=== PATIENT | female | born 1955 | race Caucasian/White ===

== ENCOUNTER 2018-10-15 16:30 | Emergency (ER) | payer OTHER ==
--- NOTE | 2018-10-15 16:40 | PDOC ---
History of Present Illness - General Chief Complaint: Injury Stated Complaint: LEFT HAND INJURY Time Seen by Provider: 10/15/18 16:32 - History of Present Illness Initial Comments: 10/15/18 16:32 63 yo F with h/o asthma, immune deficiency, who p/w left hand pain s/p mechanical fall. Patient states that yesterday evening (10-14-17) she was standing on top of step stool (2 feet from ground), and lost her balance falling onto her left "buttock," and slapping the back of her left hand onto the wooden ground. Reports dull, left hand pain, and pain with pulling, gripping. Denies head/neck/back injury, laceration, LOC. Has placed ice on left hand with mild relief. Has not attempted oral analgesia. Recent URI type symptoms with congestion, and cough. Patient denies LARSON, neck stiffness, palpitations, wheezing, PND, orthopnea, leg pain/swelling, vision change, tinnitus, N/V, F,C, CP, SOB, urinary complaints, abdominal pain, diarrhea, constipation, hematuria, BPR, lightheadedness, weakness, sensory changes. PMHx: as noted above ROS: as noted SHx: Denies Etoh, IVDA Allergies: NKDA Past History - Past Medical History Allergies/Adverse Reactions: Allergies Allergy/AdvReac Type Severity Reaction Status Date / Time kiwi Allergy Severe shock Verified 03/31/14 09:14 No Known Drug Allergies Allergy Verified 03/31/14 09:14 Home Medications: Ambulatory Orders Levothyroxine [Synthroid -] 100 mcg PO DAILY 02/21/13 Albuterol Sulfate [Proair Hfa -] 1 - 2 inh PO AM PRN 03/31/14 Multivitamins [Multivit ([facility])] 1 tab PO DAILY 09/05/15 Budesonide/Formeterol Fumarate [SYMBICORT 160/4.5mcg -] 1 inh PO DAILY 10/15/18 Immune Globul G/Gly/Iga Avg 46 [Gamunex-C] 3 gm IJ MONTHLY 10/15/18 Valacyclovir HCl [Valtrex] 1,000 mg PO DAILY PRN 10/15/18 Asthma: Yes COPD: (PNEUMONIA) HTN: Yes Hypercholesterolemia: Yes Thyroid Disease: Yes (HYPOTHYROIDISM) - Suicide/Smoking/Psychosocial Hx Smoking Status: No Smoking History: Never smoked Have you smoked in the past 12 months: No Number of Cigarettes Smoked Daily: 0 Hx Alcohol Use: Yes ("SOCIAL") Drug/Substance Use Hx: No Substance Use Type: None Hx Substance Use Treatment: No Review of Systems - Review of Systems Comments:: 10/15/18 16:34 GENERAL/CONSTITUTIONAL: No fever or chills. No weakness. HEAD, EYES, EARS, NOSE AND THROAT: No change in vision. No ear pain or discharge. No sore throat. CARDIOVASCULAR: No chest pain or shortness of breath RESPIRATORY: No cough, wheezing, or hemoptysis. GASTROINTESTINAL: No nausea, vomiting, diarrhea or constipation. GENITOURINARY: No dysuria, frequency, or change in urination. MUSCULOSKELETAL: + Left hand pain. No joint or muscle swelling. No neck or back pain. SKIN: No rash NEUROLOGIC: No headache, vertigo, loss of consciousness, or change in strength/ sensation. ENDOCRINE: No increased thirst. No abnormal weight change HEMATOLOGIC/LYMPHATIC: No anemia, easy bleeding, or history of blood clots. ALLERGIC/IMMUNOLOGIC: No hives or skin allergy. *Physical Exam - Physical Exam Comments: 10/15/18 16:34 GENERAL: Awake, alert, and fully oriented, in no acute distress HEAD: No signs of trauma, normocephalic, atraumatic EYES: PERRLA, EOMI, sclera anicteric, conjunctiva clear ENT: Auricles normal inspection, hearing grossly normal, nares patent, oropharynx clear without exudates. Moist mucosa NECK: Normal ROM, supple, no lymphadenopathy, JVD, or masses LUNGS: No distress, speaks full sentences, clear to auscultation bilaterally HEART: Regular rate and rhythm, normal S1 and S2, no murmurs, rubs or gallops, peripheral pulses normal and equal bilaterally. ABDOMEN: Soft, nontender, normoactive bowel sounds. No guarding, no rebound. No masses EXTREMITIES : Normal inspection, Normal range of motion, no edema. No clubbing or cyanosis. LEFT HAND: + 4 x 2 cm area of ecchymosis and ttp on dorsal aspect of 4th-5th metacarpals. Intact distal radial pulses BL. No obvious bony deformity, or edema. Neg scaphoid/snuff box ttp. Normal ROM. Strength 5/5 throughout ext. BACK: + Paraspinal left sided sacral ttp. Absent midline ttp, bony deformity, step-off, skin change. NEUROLOGICAL: Cranial nerves II through XII grossly intact. Normal speech, normal gait, no focal sensorimotor deficits SKIN: Warm, Dry, normal turgor, no rashes or lesions noted Procedures - Splinting Splint Location: Left: Hand Pre-Proc Neuro Vasc Exam: normal Hand-Made Type: orthoglass Splint Type: Yes: Ulnar Post-Proc Neuro Vasc Exam: normal Geovani Bandage: yes Sling: Yes Complications: No Post splint xray: No Good repositioning: Yes Medical Decision Making - Medical Decision Making 10/15/18 16:34 63 yo F with h/o asthma, immune deficiency, who p/w left hand pain s/p mechanical fall.. VSS, AF, A&Ox3, GCS 15. + 4 x 2 cm area of ecchymosis and ttp on dorsal aspect of 4th-5th metacarpals. No evidence of open/closed head injury , basilar skull fracture. C-Spine neg. R/o fracture/dislocation. Potential FOOSH injury, perilunate/lunate, Monteggia, Galeazzi, Scaphoid, Colles fracture. R/o tendinous flexor/extensor injury. Provide analgesia and reassess. ED Course: Ibuprofen 600 mg Left hand RAD HAND RAD: Closed 4th metacrapal, proximal, oblique/non displaced fracture. Left Ulnar gutter splint placed Patient advised to f/u with ortho. Patient follows with Dr. Napoleon Lassiter 10/15/18 16:42 Patient advised to take Ibuprofen as needed for pain. Rest, ICE, Elevate Stable for d/c with return precautions. *DC/Admit/Observation/Transfer Diagnosis at time of Disposition: Left hand pain Accident due to mechanical fall without injury Qualifiers: Encounter type: initial encounter Qualified Code(s): W19.XXXA - Unspecified fall, initial encounter Metacarpal bone fracture Qualifiers: Encounter type: initial encounter Metacarpal bone: fourth Fracture type: closed Metacarpal location: shaft Fracture alignment: nondisplaced Laterality: unspecified laterality Qualified Code(s): S62.358A - Nondisplaced fracture of shaft of other metacarpal bone, initial encounter for closed fracture - Discharge Dispostion Condition at time of disposition: Stable Decision to Admit order: No - Referrals Referrals: Jordy Miller MD [Primary Care Provider] - Keon Renee MD [Staff Physician] - - Patient Instructions Printed Discharge Instructions: How to Prevent Falls, DI for Hand Injury, Hand Fracture Additional Instructions: Please return to the emergency department with any new or worsening symptoms or concerns. Can take Motrin/Ibuprofen 600 mg every 6-8 hours as needed for pain. Please follow up with orthopedics within 72 hours. Please leave splint applied to fracture, and avoid water to cast. - Post Discharge Activity - Attestations Physician Attestion: 10/15/18 16:41 I attest to the information provided in this note.
[2018-10-15] MEDS ORDERED: IBUPROFEN 600 MG TABLET (FP) PO ONE ×2 (16:42→17:11)
[2018-10-15 16:50] VITALS: BP 130/86; PULSE 87; TEMP 98.3; BMI 24.0
--- NOTE | 2018-10-15 17:00 | PDOC ---
Attending Attestation - Resident Resident Name: Gurmeet Mckeon - ED Attending Attestation I have performed the following: I have examined & evaluated the patient, The case was reviewed & discussed with the resident, I agree w/resident's findings & plan - HPI HPI: 10/15/18 16:59 63 yo F with no PMHx who p/w left hand pain s/p mechanical fall yesterday evening. Patient states she was standing on top of step stool (2 feet from ground), and lost her balance falling onto her left "buttock," and slapping the back of her left hand onto the wooden ground. now increased pain, swelling and bruising to the area. - Physicial Exam PE: 10/15/18 17:36 General: NAD, well appearing Vascular: 2+ DP pulses symmetric and equal. 2+ radialis pulses bilaterally and symmetric. Focused MSK/Neuro Exam notable for soft compartments, Cap refill <2 sec. Proximal and distal strength 5/5, apns strength 5/5 - equal and symmetric. FROM. Sensation grossly intact to light touch over median/radial/ulnar distribution. no scaphoid tenderness. chronic deformity of left ulna, nontender. +ecchymosis, tenderness and swelling to dorsum of left hand along 4-5th metacarpal. no prox elbow tenderness/from proximally. Skin: color normal color, warm and well perfused. +ECCHYMOSIS and swelling to left dorsal hand along 4th-5th metacarpal - Medical Decision Making 10/15/18 17:38 hpi as documented VS wnl. given NSAID analgesia Xray left hand with base/shaft mid-4th metacarpal fx, min displaced. correlating over area affected splint in ulnar gutter for immobilization CAL, otc analgesia, supportive care. f/u ortho/Dr Sheth group. Pt informed of my clinical impression, treatment recommendations and disposition plan. All questions answered to patient's satisfaction and expressed understanding and comfort with this. Reasons for returning to the ED sooner discussed with the patient otherwise, follow up with primary care physician/ortho specialists. At the time of discharge, the patient is alert, clinically improved, tolerating po and verbalizes understanding of instructions. Patient does not suffer from an acute life-threatening medical condition at this time she is safe for outpatient follow-up.
== END 2018-10-15 18:31 | disposition home or self-care (01) ==
LOC: FER 16:30
DX: S62.358 Nondisplaced fracture of shaft of other metacarpal bone (principal); W08.XXXA Fall from other furniture, initial encounter; Y93.89 Activity, other specified; Y92.009 Unspecified place in unspecified non-institutional (private) residence as the place of occurrence of the external cause; J45.909 Unspecified asthma, uncomplicated; D84.9 Immunodeficiency, unspecified; I10 Essential (primary) hypertension; J44.9 Chronic obstructive pulmonary disease, unspecified; E78.00 Pure hypercholesterolemia, unspecified; E03.9 Hypothyroidism, unspecified
CPT/HCPCS: 73090-TC-LT-FY; 73130-TC-LT-FY; 99282-25

== ENCOUNTER 2018-11-01 08:52 | Emergency (ER) | payer OTHER, BC ==
[2018-11-01] MEDS ORDERED: IBUPROFEN 600 MG TABLET (FP) PO ONE ×2 (08:58→09:31)
[2018-11-01 09:16] VITALS: BP 138/97; PULSE 80; TEMP 98.5; BMI 24.0
--- NOTE | 2018-11-01 09:21 | PDOC ---
History of Present Illness - General Chief Complaint: Injury Stated Complaint: RT ANKLE PAIN Time Seen by Provider: 11/01/18 08:57 History Source: Patient Exam Limitations: No Limitations - History of Present Illness Initial Comments: 11/01/18 09:25 63 YOF with no medical history presenting with right ankle pain since this morning. She states she was walking down a steep path last night and wearing flat shoes. She slid on black ice, hit her left hand (which she has a splint on for metacarpal fx sustained ~2 weeks ago, and healing well), braced herself and twisted her right leg and ankle. Since then, pain worse with movement, inversion /eversion. Able to ambulate without difficulty. No weakness or paresthesias. No head injury or LOC. no other injuries sustained. No prodromal sx. PMH: none PSH: noncontributory Social: lives with family; no drugs or alcohol or smoking Meds: none. ROS: General: no constitutional symptoms MUSCULOSKELETAL: +ankle pain and swelling. No neck or back pain. SKIN: no redness or skin changes, no discharge, no rash. No wounds. NEUROLOGIC: No weakness, numbness or tingling. Allergic/Immunologic: no allergies All other systems reviewed and negative, or as documented in HPI. PE General: NAD, well appearing Vascular: 2+ DP pulses symmetric and equal. Back: no midline tenderness, no stepoffs, FROM Focused MSK/Neuro Exam notable for soft compartments, Cap refill <2 sec. Proximal and distal strength 5/5, - equal and symmetric. Plantar flexion and dorsiflexion 5/5. FROM. Sensation grossly intact to light touch. No prox fibular tenderness. Able to bear weight and take steps. +right lateral palp swelling, posterior tibial tenderness to palp. Skin: color normal color, warm and well perfused. 11/01/18 09:57 Past History - Past Medical History Allergies/Adverse Reactions: Allergies Allergy/AdvReac Type Severity Reaction Status Date / Time kiwi Allergy Severe shock Verified 11/01/18 08:53 No Known Drug Allergies Allergy Verified 11/01/18 08:53 Home Medications: Ambulatory Orders Levothyroxine [Synthroid -] 100 mcg PO DAILY 02/21/13 Albuterol Sulfate [Proair Hfa -] 1 - 2 inh PO AM PRN 03/31/14 Budesonide/Formeterol Fumarate [SYMBICORT 160/4.5mcg -] 1 inh PO DAILY 10/15/18 Immune Globul G/Gly/Iga Avg 46 [Gamunex-C] 3 gm IJ MONTHLY 10/15/18 Asthma: Yes COPD: (PNEUMONIA) HTN: Yes Hypercholesterolemia: Yes Thyroid Disease: Yes (HYPOTHYROIDISM) - Suicide/Smoking/Psychosocial Hx Smoking Status: No Smoking History: Never smoked Have you smoked in the past 12 months: No Number of Cigarettes Smoked Daily: 0 Information on smoking cessation initiated: No Hx Alcohol Use: No Drug/Substance Use Hx: No Substance Use Type: None Hx Substance Use Treatment: No *Physical Exam - Vital Signs Last Vital Signs Temp Pulse Resp BP Pulse Ox 98.5 F 80 20 138/97 99 11/01/18 08:53 11/01/18 08:53 11/01/18 08:53 11/01/18 08:53 11/01/18 08:53 Moderate Sedation - Procedure Monitoring Vital Signs: Procedure Monitoring Vital Signs Temperature 98.5 F 11/01/18 08:53 Pulse Rate 80 11/01/18 08:53 Respiratory Rate 20 11/01/18 08:53 Blood Pressure 138/97 11/01/18 08:53 O2 Sat by Pulse Oximetry (%) 99 11/01/18 08:53 ED Treatment Course - RADIOLOGY Radiology Studies Ordered: Category Date Time Status ANKLE & FOOT-RIGHT* [RAD] Stat Radiology 11/01/18 08:58 Ordered Medical Decision Making - Medical Decision Making 11/01/18 09:26 hpi as documented VS wnl. DDx extremity injury: Ankle Sprain, contusion, Tib-fib fracture, hematoma. analgesia here with motrin. able to bear weight, but due to age, will Xray to r/o fx. most likely sprain of ankle with appearance. Xray ankle: normal joint space alignment, no acute fx or dislocation of right tib/fib. Xray foot: normal findings, no acute fx, no lisfranc Discussed results with patient. PILY wrap for comfort, air cast splint provided. Rest ice and elevation. Pain control with OTC meds including motrin/tylenol PRN ; no narcotics. Ortho followup provided. Crutches to assist with ambulation, WBAT. Pt to be discharged in stable condition. Patient and family made aware of impression and plan, return precautions discussed (including but not limited to worsening pain or symptoms), fevers, or signs of infection, chest pain, respiratory distress, inability to tolerate oral intake, dehydration, syncope, or neurologic changes). Follow up with PMD and/or specialist as recommended, follow up information provided, take medications as instructed for duration of time. continue with supportive care, avoid triggers and precipitants. Patient does not suffer from an acute life-threatening medical condition at this time she is safe for outpatient follow-up. 11/01/18 09:27 11/01/18 09:48 11/01/18 10:24 *DC/Admit/Observation/Transfer Diagnosis at time of Disposition: Right ankle sprain Qualifiers: Encounter type: initial encounter Involved ligament of ankle: unspecified ligament Qualified Code(s): S93.401A - Sprain of unspecified ligament of right ankle, initial encounter - Discharge Dispostion Disposition: HOME Condition at time of disposition: Improved Decision to Admit order: No - Referrals Referrals: Erik Gibbons MD [Staff Physician] - Manny Sheth MD [Staff Physician] - - Patient Instructions Printed Discharge Instructions: DI for Ankle Sprain, How to Prevent Falls Additional Instructions: you most likely have musculoskeletal strain of your ankle from your fall/ twisting action your Xray are negative for fracture or dislocation. avoid heavy lifting or strenuous activity rest and take tylenol as needed for mild to moderate pain. you can add on ibuprofen/aleve/advil as needed for additional analgesia. continue with range of motion exercises. be careful when you walk and wear proper footing. PILY wraps for comfort, you can bear weight and walk as tolerated. ankle stirrups also provided as well for additional support and pain control to help you walk Follow up with primary doctor/specialist services provided as well. orthopedics referrals given, Dr Sheth/Shai in 1 week as needed - Post Discharge Activity Forms/Work/School Notes: Back to Work
== END 2018-11-01 10:36 | disposition home or self-care (01) ==
LOC: FER 08:52
PROC: 2W3QX1Z Immobilization of Right Lower Leg using Splint (ICD-10-PCS; principal; 2018-11-01)
DX: S93.401A Sprain of unspecified ligament of right ankle, initial encounter (principal)
CPT/HCPCS: 73610-TC-RT-FY; 73630-TC-RT-FY; 99281-25

== ENCOUNTER 2021-09-22 20:37 | Inpatient (IN) | payer OTHER, BC ==
[2021-09-22] MEDS ORDERED: morphine CARPU-JECT 4 MG/1 ML DISP.SYRIN IVPUSH ONE ×2 (21:14→22:59)
[2021-09-22] MEDS ORDERED: SODIUM CHLORIDE 1,000 ML ONE (21:14)
[2021-09-22] MEDS ORDERED: ONDANSETRON 4 MG/2 ML VIAL IVPB ONE (21:14)
[2021-09-22] MEDS ORDERED: morphine SULFATE 4 MG/ML VIAL ONE ×2 (21:21→23:00)
[2021-09-22] MEDS ORDERED: ONDANSETRON 4 MG/2 ML VIAL ONE (21:22)
[2021-09-22 21:28] LABS: EPITHELIAL CELLS FEW /hpf
[2021-09-22 21:55] LABS: ALBUMIN 4.4 g/dl (3.4-5.0); BILIRUBIN,TOTAL 0.5 mg/dl (0.2-1); CREATININE 0.8 mg/dl (0.55-1.3); TOT PROT 7.2 g/dl (6.4-8.2)
[2021-09-22] MEDS ORDERED: PIPERACILLIN/TAZOB 4.5 GM 4.5 GM in DEXTROSE 5%-WATER 100 ML IVPB ONE (22:49)
[2021-09-22] MEDS ORDERED: SODIUM CHLORIDE 1,000 ML IV ONE (22:54)
[2021-09-22] MEDS ORDERED: PIPERACILLIN/TAZOBACTAM 4.5 GM VIAL IVPB ONE (22:55)
[2021-09-22] MEDS ORDERED: HYDROmorphone HCL CARPU-JECT 1 MG/1 ML DISP.SYRIN IVPUSH ONE (23:30)
[2021-09-22] MEDS ORDERED: HYDROmorphone HCL/PF 1 MG/ML VIAL ONE (23:34)
[2021-09-23] MEDS ORDERED: ACETAMINOPHEN 1000 MG/100 ML BAG IVPB PRN (00:43)
[2021-09-23 01:40] LABS: BASO % 0.4 % (0-2.0); EOS % 0.4 % (0-4.5); HEMATOCRIT 33.6 % (32.4-45.2); HEMOGLOBIN 11.3 GM/dL (10.7-15.3); MCHC 33.5 g/dl (32.0-36.0); MEAN CELL VOLUME 86.5 fl (80-96); MONO % 4.8 % (3.8-10.2); NEUT % 88.4 % (42.8-82.8); PLATELET COUNT 209 10^3/uL (134-434); RBC 3.88 M/mm3 (3.60-5.2); RDW 13.5 % (11.6-15.6); WHITE BLOOD COUNT 13.4 K/mm3 (4.0-10.0)
[2021-09-23] MEDS: DEXTROSE 5%-0.45% SALINE 1,000 ML IV SCH ×2 (05:00→22:23)
[2021-09-23] MEDS: PIPERACILLIN/TAZOB 3.375 GM 3.375 GM/50 ML BAG IVPB SCH ×2 (07:04→09:29)
[2021-09-23 07:58] LABS: BASO % 0.3 % (0-2.0); EOS % 0.2 % (0-4.5); HEMATOCRIT 31.9 % (32.4-45.2); LYMPH % 8.2 % (8-40); MCH 29.6 pg (25.7-33.7); MCHC 34.3 g/dl (32.0-36.0); MEAN CELL VOLUME 86.2 fl (80-96); MEAN PLT VOLUME 8.9 fl (7.5-11.1); MONO % 4.6 % (3.8-10.2); NEUT % 86.7 % (42.8-82.8); PLATELET COUNT 200 10^3/uL (134-434); RDW 13.7 % (11.6-15.6); WHITE BLOOD COUNT 13.3 K/mm3 (4.0-10.0)
[2021-09-23 08:52] LABS: ALBUMIN 3.5 g/dl (3.4-5.0); BILIRUBIN,TOTAL 0.4 mg/dl (0.2-1); CREATININE 0.9 mg/dl (0.55-1.3); MAGNESIUM 1.7 mg/dL (1.8-2.4); TOT PROT 5.9 g/dl (6.4-8.2)
[2021-09-23] MEDS ORDERED: MAGNESIUM SULF 50% (8.12 MEQ/2 ML-1 GM VIAL) IVPB ONE (09:51)
[2021-09-23 11:56] VITALS: BMI 25.3
[2021-09-23] MEDS ORDERED: PT OWN MED DRAWER 7, Y5N ONE (14:51)
[2021-09-23] MEDS: BUDESONIDE/FORMETEROL FUMARATE 160/4.5 mcg INHALER IH SCH ×3 (14:57→22:13)
[2021-09-23] MEDS ORDERED: DEXTROSE 5%-WATER - 50 ML IVPB ONE (17:35)
[2021-09-23] MEDS ORDERED: PIPERACILLIN/TAZOBACTAM 3.375 GM VIAL IVPB ONE (17:35)
[2021-09-23] MEDS: PIPERACILLIN/TAZOB 3.375 GM 3.375 GM in DEXTROSE 5%-WATER - 50 ML IVPB SCH (17:43)
[2021-09-23] MEDS ORDERED: ACETAMINOPHEN 1000 MG/100 ML BAG IVPB ONE (20:25)
[2021-09-24] MEDS ORDERED: PIPERACILLIN/TAZOBACTAM 3.375 GM VIAL IVPB ONE ×3 (01:14→19:50)
[2021-09-24] MEDS ORDERED: DEXTROSE 5%-WATER - 50 ML IVPB ONE ×3 (01:14→19:50)
[2021-09-24] MEDS: PIPERACILLIN/TAZOB 3.375 GM 3.375 GM in DEXTROSE 5%-WATER - 50 ML IVPB SCH ×3 (01:35→19:53)
[2021-09-24] MEDS: DEXTROSE 5%-0.45% SALINE 1,000 ML IV SCH (01:36)
[2021-09-24] MEDS ORDERED: ACETAMINOPHEN 1000 MG/100 ML BAG IVPB ONE (04:53)
[2021-09-24] MEDS: BUDESONIDE/FORMETEROL FUMARATE 160/4.5 mcg INHALER IH SCH ×2 (09:32→21:29)
[2021-09-24] MEDS: ACETAMINOPHEN 1000 MG/100 ML BAG IVPB PRN ×2 (12:57→19:52)
[2021-09-24 13:09] LABS: HEMATOCRIT 32.9 % (32.4-45.2); HEMOGLOBIN 11.3 GM/dL (10.7-15.3); MCH 29.6 pg (25.7-33.7); MCHC 34.3 g/dl (32.0-36.0); MEAN CELL VOLUME 86.4 fl (80-96); MEAN PLT VOLUME 9.1 fl (7.5-11.1); PLATELET COUNT 180 10^3/uL (134-434); RDW 13.8 % (11.6-15.6); WHITE BLOOD COUNT 10.8 K/mm3 (4.0-10.0)
[2021-09-24 13:18] LABS: BLOOD UREA NITROGEN 6.5 mg/dL (7-18); CALCIUM 7.8 mg/dL (8.5-10.1)
[2021-09-24 13:22] LABS: CREATININE 0.9 mg/dL (0.55-1.3)
[2021-09-24 13:23] LABS: BILIRUBIN,TOTAL 0.6 mg/dL (0.2-1)
[2021-09-24 14:02] LABS: MAGNESIUM 2.5 mg/dL (1.8-2.4)
[2021-09-24 14:06] LABS: PHOSPHOROUS 2.9 mg/dL (2.5-4.9)
[2021-09-24] MEDS: ENOXAPARIN NA (PORCINE) 40 MG/0.4 ML DISP.SYRIN SQ SCH (15:19)
[2021-09-24] MEDS: KCL 10 MEQ IVPB 10 MEQ/100 ML INFUS.BAG IVPB SCH ×3 (15:20→18:20)
[2021-09-24] MEDS ORDERED: DEXTROSE 5%-0.45% SALINE 1,000 ML with POTASSIUM CHLORIDE 20 MEQ IV SCH (17:10)
[2021-09-24] MEDS: D5-1/2NS+20 MEQ KCL - 20 MEQ/1,000 ML INFUS.BAG IV SCH (20:07)
[2021-09-25] MEDS ORDERED: PIPERACILLIN/TAZOBACTAM 3.375 GM VIAL IVPB ONE ×3 (01:33→17:40)
[2021-09-25] MEDS ORDERED: DEXTROSE 5%-WATER - 50 ML IVPB ONE ×3 (01:34→17:40)
[2021-09-25] MEDS: PIPERACILLIN/TAZOB 3.375 GM 3.375 GM in DEXTROSE 5%-WATER - 50 ML IVPB SCH ×3 (01:39→18:13)
[2021-09-25] MEDS: ACETAMINOPHEN 1000 MG/100 ML BAG IVPB PRN ×3 (04:21→20:01)
[2021-09-25] MEDS: LEVOTHYROXINE SODIUM 100 MCG VIAL IVPUSH SCH ×2 (07:14→09:55)
[2021-09-25] MEDS: D5-1/2NS+20 MEQ KCL - 20 MEQ/1,000 ML INFUS.BAG IV SCH ×2 (07:15→21:09)
[2021-09-25] MEDS: ENOXAPARIN NA (PORCINE) 40 MG/0.4 ML DISP.SYRIN SQ SCH (09:57)
[2021-09-25] MEDS: BUDESONIDE/FORMETEROL FUMARATE 160/4.5 mcg INHALER IH SCH ×2 (10:21→21:10)
[2021-09-25 10:41] LABS: BASO % 0.3 % (0-2.0); HEMATOCRIT 34.9 % (32.4-45.2); HEMOGLOBIN 11.7 GM/dL (10.7-15.3); LYMPH % 7.3 % (8-40); MCH 29.1 pg (25.7-33.7); MCHC 33.6 g/dl (32.0-36.0); MEAN CELL VOLUME 86.7 fl (80-96); MONO % 4.7 % (3.8-10.2); NEUT % 85.7 % (42.8-82.8); PLATELET COUNT 212 10^3/uL (134-434); RBC 4.03 M/mm3 (3.60-5.2); RDW 13.6 % (11.6-15.6); WHITE BLOOD COUNT 11.3 K/mm3 (4.0-10.0)
[2021-09-25 10:58] LABS: CALCIUM 8.3 mg/dL (8.5-10.1)
[2021-09-25 11:00] LABS: MAGNESIUM 2.4 mg/dL (1.8-2.4)
[2021-09-25 11:02] LABS: CREATININE 0.8 mg/dL (0.55-1.3); PHOSPHOROUS 1.9 mg/dL (2.5-4.9)
[2021-09-25 11:03] LABS: TOT PROT 6.5 g/dl (6.4-8.2)
[2021-09-25 11:04] LABS: BILIRUBIN,TOTAL 0.5 mg/dL (0.2-1)
[2021-09-25] MEDS ORDERED: POTASSIUM PHOSPHATE 30 MM in DEXTROSE 5%-WATER - 500 ML IVPB ONE (14:00)
[2021-09-25] MEDS ORDERED: LEVOTHYROXINE SODIUM 100 MCG VIAL IVPUSH SCH (18:23)
[2021-09-25 22:40] VITALS: BP 144/79; PULSE 79; TEMP 98.9
[2021-09-26] MEDS ORDERED: PIPERACILLIN/TAZOBACTAM 3.375 GM VIAL IVPB ONE (01:06)
[2021-09-26] MEDS ORDERED: DEXTROSE 5%-WATER - 50 ML IVPB ONE (01:06)
[2021-09-26] MEDS: PIPERACILLIN/TAZOB 3.375 GM 3.375 GM in DEXTROSE 5%-WATER - 50 ML IVPB SCH (01:15)
[2021-09-26] MEDS ORDERED: LEVOTHYROXINE SODIUM 100 MCG VIAL IVPUSH SCH (07:00)
== END 2021-09-26 03:00 | disposition short-term general hospital (02) | DRG 392 ==
LOC: FER 20:37 → J8W 09-23 08:59
PROVIDERS: ADMIT Internal Medicine; ATTEND Internal Medicine
DX: K57.80 Diverticulitis of intestine, part unspecified, with perforation and abscess without bleeding (principal); D80.3 Selective deficiency of immunoglobulin G [IgG] subclasses; J98.11 Atelectasis; J45.909 Unspecified asthma, uncomplicated; I10 Essential (primary) hypertension; E03.9 Hypothyroidism, unspecified; E78.5 Hyperlipidemia, unspecified; R11.0 Nausea; R10.30 Lower abdominal pain, unspecified
CPT/HCPCS: 36415; 71045-TC-FY; 74176-TC; 74177-TC; 80053; 81003; 81015; 83605; 83690; 83735; 84100; 85025; 85027; 86850; 86900; 86901; 87040; 87086; 93005; 99285-25; C9803; J0131; Q9967; U0003; U0005

== ENCOUNTER 2022-05-25 19:24 | Emergency (ER) | payer OTHER, BC ==
[2022-05-25 19:32] VITALS: BP 134/96; PULSE 75; RESP 18; TEMP 98.1; BMI 24.7
[2022-05-25] MEDS ORDERED: predniSONE 20 MG TABLET (UD) ONE (19:49)
[2022-05-25] MEDS ORDERED: predniSONE 20 MG TABLET (UD) PO ONE (19:50)
== END 2022-05-25 19:59 | disposition home or self-care (01) ==
LOC: FER 19:24
DX: S90.861A Insect bite (nonvenomous), right foot, initial encounter (principal); S90.862A Insect bite (nonvenomous), left foot, initial encounter; W57.XXXA Bitten or stung by nonvenomous insect and other nonvenomous arthropods, initial encounter
CPT/HCPCS: 99283-25